=== PATIENT | female | born 1960 | race Caucasian/White ===

== ENCOUNTER → 2024-04-07 | Outpatient (CLI) | payer MEDICARE, BC, SELFPAY | END | disposition home or self-care (01) | LOC: SWHD 09:24 | PROVIDERS: PCP Internal Medicine Hospice and Palliative Medicine; Referring Provider Internal Medicine Hospice and Palliative Medicine; Visit Provider Student in an Organized Health Care Education/Training Program | DX: T81.89XA Other complications of procedures, not elsewhere classified, initial encounter (principal); L97.812 Non-pressure chronic ulcer of other part of right lower leg with fat layer exposed; I10 Essential (primary) hypertension; R60.0 Localized edema | CPT/HCPCS: 11042; A9270 ==

== ENCOUNTER → 2024-05-31 | Outpatient (CLI) | payer MEDICARE, BC, SELFPAY | END | disposition home or self-care (01) | LOC: SWHD 10:51 | PROVIDERS: PCP Internal Medicine Hospice and Palliative Medicine; Referring Provider Internal Medicine Hospice and Palliative Medicine; Visit Provider Student in an Organized Health Care Education/Training Program | DX: T81.89XA Other complications of procedures, not elsewhere classified, initial encounter (principal); L97.812 Non-pressure chronic ulcer of other part of right lower leg with fat layer exposed; I10 Essential (primary) hypertension; R60.0 Localized edema | CPT/HCPCS: 11042; A9270 ==

== ENCOUNTER → 2024-06-17 | Outpatient (CLI) | payer MEDICARE, BC, SELFPAY | END | disposition home or self-care (01) | LOC: SWHD 09:42 | PROVIDERS: PCP Internal Medicine Hospice and Palliative Medicine; Referring Provider Internal Medicine Hospice and Palliative Medicine; Visit Provider Surgery | DX: T81.89XA Other complications of procedures, not elsewhere classified, initial encounter (principal); L97.812 Non-pressure chronic ulcer of other part of right lower leg with fat layer exposed; I10 Essential (primary) hypertension; R60.0 Localized edema | CPT/HCPCS: 99212; G0463 ==

== ENCOUNTER → 2025-03-10 | Outpatient (CLI) | payer MEDICARE, BC, SELFPAY | END | disposition home or self-care (01) | LOC: SWHD 08:13 | PROVIDERS: Visit Provider Surgery | DX: R60.0 Localized edema (principal); S81.801A Unspecified open wound, right lower leg, initial encounter; X58.XXXA Exposure to other specified factors, initial encounter; I10 Essential (primary) hypertension; I86.8 Varicose veins of other specified sites; I50.9 Heart failure, unspecified | CPT/HCPCS: 99213; G0463 ==

== ENCOUNTER → 2025-03-14 | Outpatient (CLI) | payer MEDICARE, BC, SELFPAY ==
--- NOTE | 2025-03-14 09:01 | XR_ITS ---
Examination: Lumbar spine 3 views Technique one AP lateral coned lateral lower lumbar spine 3 views Date and time: March 14, 2025 0925 hours INDICATIONS: Lower back pain beginning 2 years ago. FINDINGS: Multiple gallstones. Severe osteopenia. Chronic osteoporotic compressions lumbar vertebral bodies Diffuse [id number] lumbar disc narrowing IMPRESSION: Cholelithiasis Severe osteopenia Chronic osteoporotic compressions lumbar vertebral bodies
--- NOTE | 2025-03-14 09:01 | XR_ITS ---
Examination: Right foot 2 views Technique one AP lateral right foot 2 views Date and time: March 14, 2025, 0950 hours, comparison July 30, 2004 INDICATIONS: Right knee swelling and pain post surgery one year ago. FINDINGS: Severe osteopenia. Old fracture fifth metatarsal. Prominent soft tissue swelling dorsum of the foot Large plantar posterior bony calcaneal spurs No acute fracture No gurjit cortical bone destruction IMPRESSION: No acute fracture No gurjit cortical bone destruction
== END | disposition home or self-care (01) ==
PROVIDERS: PCP Internal Medicine Hospice and Palliative Medicine; Referring Provider Nurse Practitioner Family; Visit Provider Nurse Practitioner Family
DX: M79.671 Pain in right foot (principal); K80.20 Calculus of gallbladder without cholecystitis without obstruction; M85.88 Other specified disorders of bone density and structure, other site; M81.8 Other osteoporosis without current pathological fracture
CPT/HCPCS: 72100; 73620

== ENCOUNTER → 2025-04-07 | Outpatient (CLI) | payer MEDICARE, BC, SELFPAY | END | disposition home or self-care (01) | LOC: SWHD 09:19 | PROVIDERS: PCP Internal Medicine Hospice and Palliative Medicine; Referring Provider Internal Medicine Hospice and Palliative Medicine; Visit Provider Student in an Organized Health Care Education/Training Program | DX: S81.801A Unspecified open wound, right lower leg, initial encounter (principal); W19.XXXA Unspecified fall, initial encounter; R60.0 Localized edema; I10 Essential (primary) hypertension; I86.8 Varicose veins of other specified sites; I50.9 Heart failure, unspecified | CPT/HCPCS: 99212; G0463 ==

== ENCOUNTER → 2025-06-23 | Outpatient (CLI) | payer MEDICARE, BC, SELFPAY | END | disposition home or self-care (01) | PROVIDERS: PCP Internal Medicine Hospice and Palliative Medicine; Referring Provider Internal Medicine Hospice and Palliative Medicine; Visit Provider Surgery | DX: T21.24XA Burn of second degree of lower back, initial encounter (principal); R60.0 Localized edema; I86.8 Varicose veins of other specified sites; I50.9 Heart failure, unspecified; I11.9 Hypertensive heart disease without heart failure | CPT/HCPCS: 16020; 99212; A9270; G0463 ==